=== PATIENT | female | born 1965 | race Caucasian/White ===

== ENCOUNTER 2021-04-17 20:42 | Inpatient (IN) | payer BC ==
[~2021-04-17] VITALS: Ht 157.5 cm; Wt 69.3 kg
[2021-04-18] MEDS ORDERED: ONDANSETRON ODT 4 MG TAB PO ONE (00:15)
[2021-04-18] MEDS ORDERED: HYDROmorphone HCL 2 MG/ML VL IM ONE (00:15)
[2021-04-18] MEDS ORDERED: SODIUM CHLORIDE 0.9% 1,000 ML IV ONE (06:45)
[2021-04-18] MEDS ORDERED: HYDROmorphone HCL 2 MG/ML VL IV ONE (07:45)
[2021-04-18] MEDS ORDERED: ETOMIDATE (2MG/ML) 20ML VIAL IV ONE (07:45)
[2021-04-18] MEDS ORDERED: MIDAZOLAM HCL 5 MG/ML-1ML VIAL IV ONE (07:45)
[2021-04-18] MEDS ORDERED: ONDANSETRON HCL 4 MG/2 ML VIAL IV ONE (07:45)
[2021-04-18 07:47] LABS: Basophils # (auto) 0 10 ^3/uL (0-0.2); Basophils % (auto) 0.2 % (0.0-2.0); Eosinophils # (auto) 0 10 ^3/uL (0-0.8); Hematocrit 35.5 % (36.0-46.0); Hemoglobin 11.9 g/dL (12.2-16.2); Lymphocytes # (auto) 0.9 10 ^3/uL (0.4-5.4); Mean Corpuscular Hemoglobin 28.3 pg (28.0-32.0); Mean Corpuscular Hgb Conc. 33.7 g/dL (32.0-36.0); Mean Corpuscular Volume 84.1 fL (80.0-100.0); Monocytes # (auto) 0.3 10 ^3/uL (0-1.3); Monocytes % (auto) 2.8 % (0.0-12.0); Neutrophils # (auto) 8.4 10 ^3/uL (1.6-8.6); Nucleated Red Blood Cells % 0.1 %; Red Blood Cells 4.22 10^6/uL (4.0-5.20); Red Cell Distribution Width 13.6 % (11.8-14.3); White Blood Cell 9.5 10^3/uL (4.4-10.8)
[2021-04-18 08:01] LABS: Albumin 3.8 g/dL (3.4-5.0); Calcium 9.4 mg/dL (8.5-10.1); Magnesium 2.5 mg/dL (1.6-2.6); Potassium 3.8 mmol/L (3.5-5.1)
[2021-04-18 08:04] LABS: BUN/Creatinine Ratio 16.7; Bilirubin, Total 0.4 mg/dL (0.2-1.0)
[2021-04-18 08:17] LABS: INR 0.97 (0.9-1.15); Partial Thromboplastin Time 23.4 sec (23.6-33.0)
[2021-04-18] MEDS ORDERED: ACETAMINOPHEN 500 MG TAB PO PRN (11:45)
[2021-04-18] MEDS ORDERED: TEMAZEPAM 15 MG CAP PO PRN (11:45)
[2021-04-18] MEDS ORDERED: LACTULOSE 20Gm/30ML SOLN PO PRN (11:45)
[2021-04-18] MEDS ORDERED: cefTRIAXone 1GM/50ML D5W 50 ML IV ONE (11:45)
[2021-04-18] MEDS ORDERED: HYDROcodone-ACET 5/325MG TAB PO PRN (11:45)
[2021-04-18] MEDS: SODIUM CHLORIDE 0.9% 1,000 ML IV SCH ×2 (12:10→21:45)
[2021-04-18] MEDS ORDERED: LEVO75TA6 PO (12:19)
[2021-04-18 13:25] VITALS: BP 140/75
[2021-04-18 14:24] LABS: Urine Bacteria FEW /hpf (None Seen); Urine Blood Negative /uL (Negative); Urine Specific Gravity 1.024 (1.001-1.035); Urine WBC 2 /hpf (0 - 5)
[2021-04-18] MEDS: MORPHINE SULFATE 4 MG/ML SYR/VIAL IV PRN ×2 (14:33→21:46)
[2021-04-18] MEDS ORDERED: BUPIVACAINE 0.25% INJ 50ML VIAL ONE (14:56)
[2021-04-18] MEDS ORDERED: ceFAZolin 1GM VL ONE ×2 (15:01→16:03)
[2021-04-18] MEDS ORDERED: ceFAZolin 1GM/50ML 100 ML IV ONE (15:03)
[2021-04-18] MEDS ORDERED: ONDANSETRON HCL 4 MG/2 ML VIAL ONE (15:11)
[2021-04-18] MEDS ORDERED: PROPOFOL 10 MG/ML 20 ML IV ONE (15:11)
[2021-04-18] MEDS ORDERED: LIDOCAINE 2% (LOCAL ANESTH.) PF 5ml SDV ONE (15:11)
[2021-04-18] MEDS ORDERED: fentaNYL CITRATE 100 MCG/2 ML VL ONE (15:13)
[2021-04-18] MEDS ORDERED: HYDROmorphone HCL 2 MG/ML VL ONE ×2 (15:13→17:27)
[2021-04-18] MEDS ORDERED: MIDAZOLAM HCL 2MG/2ML 2ml VIAL (1mg/ml) ONE (15:14)
[2021-04-18] MEDS ORDERED: ROCURONIUM 10MG/ML 10ML VIAL IV ONE (15:17)
[2021-04-18] MEDS ORDERED: SODIUM CHLORIDE LOCK 10 ML ONE (16:06)
[2021-04-18] MEDS ORDERED: NALOXONE HCL 0.4 MG/ML VIAL ONE (17:00)
[2021-04-18] MEDS ORDERED: GLYCOPYRROLATE 0.2 MG/ML 1ML VIAL ONE (17:08)
[2021-04-18] MEDS: HYDROmorphone HCL 2 MG/ML VL IV PRN ×2 (17:30→17:45)
[2021-04-18] MEDS ORDERED: ONDANSETRON HCL 4 MG/2 ML VIAL IV PRN (17:30)
[2021-04-18] MEDS ORDERED: DEXTROSE (50%) 50ML SYRG IV PRN (18:30)
[2021-04-18 20:00] VITALS: BP 136/80
[2021-04-18] MEDS: ACCU-CHEK COMFORT CURVE STRIP VI SCH (21:55)
[2021-04-18 23:43] VITALS: BP 136/80
[2021-04-19] MEDS: SODIUM CHLORIDE 0.9% 1,000 ML IV SCH ×2 (02:30→03:30)
[2021-04-19] MEDS: MORPHINE SULFATE 4 MG/ML SYR/VIAL IV PRN ×2 (02:43→09:00)
[2021-04-19 05:27] VITALS: BP 132/71
[2021-04-19] MEDS: ACCU-CHEK COMFORT CURVE STRIP VI SCH (05:31)
[2021-04-19 09:00] VITALS: BP 137/77
[2021-04-19] MEDS ORDERED: cefTRIAXone 1GM/50ML D5W 50 ML IV SCH (09:00)
[2021-04-19 12:48] VITALS: BP 132/70
[2021-04-19 15:16] VITALS: BP 120/76
== END 2021-04-19 17:00 | disposition home or self-care (01) | DRG 493 ==
LOC: EDBD 20:42 → ER 20:46 → CENTRAL 04-18 11:40
PROVIDERS: ADMIT Internal Medicine; ATTEND Internal Medicine
PROC: 0QSH04Z Reposition Left Tibia with Internal Fixation Device, Open Approach (ICD-10-PCS; principal; 2021-04-18 15:10)
DX: S82.852A Displaced trimalleolar fracture of left lower leg, initial encounter for closed fracture (principal); N39.0 Urinary tract infection, site not specified; D64.9 Anemia, unspecified; E03.9 Hypothyroidism, unspecified; Z20.822 Contact with and (suspected) exposure to COVID-19; R73.9 Hyperglycemia, unspecified; X58.XXXA Exposure to other specified factors, initial encounter; Y93.89 Activity, other specified; Z82.49 Family history of ischemic heart disease and other diseases of the circulatory system; Z90.710 Acquired absence of both cervix and uterus; Y92.89 Other specified places as the place of occurrence of the external cause; Y99.8 Other external cause status
CPT/HCPCS: 36415; 71045; 73600; 73610; 73630; 80053; 81001; 82962; 83036; 83735; 84702; 85025; 85610; 85730; 86850; 86900; 86901; 87086; 87426; 93005; 96374; 96375; G0378; J0690; J0696; J2001; J2250; J2405; J2704; J3490; Q0162